=== PATIENT | female | born 1935 | race Hispanic/Latino ===

== ENCOUNTER → 2017-09-27 | Outpatient (CLI) | payer OTHER ==
[~2017-09-27] MED LIST: ADV250 IH; AEC81 PO; ALBU8.5H8 IH; CARV20CR PO; DEXL60CA3 PO; DONE10TA8 PO; DULO60CA44 PO; FLUT100B IH; HYDR-4068 PO; HYDR25TA PO; LAMO25TA3 PO; LEVE750T4 PO; MONT10TA21 PO; OMEP-272 PO; PRED10TA3 PO; SERT100T PO
== END | disposition home or self-care (01) ==
LOC: RAH 16:51
PROVIDERS: ATTEND Internal Medicine
DX: R00.9 Unspecified abnormalities of heart beat (principal)
CPT/HCPCS: 71046

== ENCOUNTER 2018-06-06 21:22 | Inpatient (IN) | payer OTHER, MEDICARE ==
[~2018-06-06] VITALS: Ht 160 cm; Wt 105.3 kg
[2018-06-06 21:52] LABS: BASOPHILS % (AUTO) 0.7 % (0.0-5.0); EOSINOPHILS % (AUTO) 1.9 % (0.0-8.0); HEMATOCRIT 38.6 % (36-48); MEAN CORPUSCULAR HEMOGLOBIN 32.5 pg (27.0-33.0); MEAN CORPUSCULAR HGB CONC 33.9 g/dL (32.0-36.0); MONOCYTES % (AUTO) 12.4 % (3.0-13.0); NUCLEATED RED BLOOD CELLS 0.1 % (0.0-0.19); PLATELET COUNT (AUTO) 127 K/uL (130-400); RED BLOOD CELL COUNT(AUTO) 4.02 MIL/uL (4.00-5.50); RED CELL DISTRIBUTION WIDTH 12.8 % (11.0-15.5); WHITE BLOOD COUNT (AUTO) 5.5 K/uL (4.8-10.8)
[2018-06-06] MEDS ORDERED: IPRATROPIUM/ALBUTEROL SULFATE 3 ML SOLUTION IH ONE (21:53)
[2018-06-06 22:02] LABS: CARBON DIOXIDE 27 mmol/L (21-32); CHLORIDE 101 mmol/L (101-111); GLOMERULAR FILTR. RATE CALC 57 mL/min (>60); GLUCOSE,RANDOM 111 mg/dL (70-105); POTASSIUM 3.9 mmol/L (3.5-5.1); SODIUM SERUM 138 mmol/L (136-145); UREA NITROGEN, BLOOD 22 mg/dL (7-18)
[2018-06-06 22:03] LABS: INR 1.02 (0.85-1.15); PARTIAL THROMBOPLASTIN TIME 28.7 SEC (26.3-35.5); PROTHROMBIN TIME 10.7 SEC (9.6-11.6)
[2018-06-06] MEDS ORDERED: METHYLPREDNISOLONE SOD SUCC 125MG/2ML VIAL ONE (22:07)
[2018-06-06] MEDS ORDERED: SODIUM CHLORIDE 0.9% 250 ML IV ONE (22:08)
[2018-06-06] MEDS ORDERED: ACETAMINOPHEN 325 MG TAB ONE (22:08)
[2018-06-06 22:17] LABS: ALANINE AMINOTRANSFERASE 17 U/L (12-78); ALBUMIN 3.8 g/dL (3.5-5.0); ASPARTATE AMINOTRANSFERASE 32 U/L (10-37); BILIRUBIN,TOTAL 0.5 mg/dL (0.2-1.0); MYOGLOBIN 364 ng/mL (10-92); TOTAL PROTEIN, SERUM 8.3 g/dL (6.0-8.3); TROPONIN I < 0.04 ng/mL (0.00-0.06)
[2018-06-06 22:20] LABS: CREATINE KINASE, TOTAL 934 U/L (21-232)
[2018-06-06 22:53] LABS: BILIRUBIN,URINE Negative (NEGATIVE); COLOR,URINE Yellow (YELLOW); GLUCOSE, URINE (UA) Negative (NEGATIVE); KETONES,URINE Negative (NEGATIVE); LEUKOCYTE ESTERASE ,URINE Negative (NEGATIVE); NITRATE,URINE Negative (NEGATIVE); OCCULT BLOOD,URINE Negative (NEGATIVE); PH,URINE 5.5 (5.0-8.0); PROTEIN,URINE Negative (NEGATIVE)
[2018-06-06 22:57] LABS: APPEARANCE,URINE CLEAR (CLEAR)
[2018-06-06] MEDS ORDERED: ONDANSETRON HCL 4 MG/2 ML VIAL IV PRN (23:15)
[2018-06-06] MEDS ORDERED: AZITHROMYCIN 500MG+NS 250ML 250 ML IV ONE (23:22)
[2018-06-07 01:20] VITALS: BP 137/68
--- NOTE | 2018-06-07 01:20 | NUR ---
ADMISSION. PT TRANSFERRED FROM ER VIA WHEELCHAIR INTO ROOM 414. O2 AT 2L/MIN VIA NC. PT AWAKE AND ALERT, NO C/O PAIN OR DISCOMFORT AT THIS TIME. PT DAUGHTER AT BEDSIDE. PT AND DAUGHTER ORIENTED TO ROOM, CALL MIRELA AT REACH. Addendum: 06/07/18 at 0138 by FOUZIA SNOW RN Amended: Links added.
[2018-06-07] MEDS: IPRATROPIUM/ALBUTEROL SULFATE 3 ML SOLUTION IH SCH ×6 (01:50→22:35)
[2018-06-07] MEDS: SODIUM CHLORIDE 0.9% 1000ML 1,000 ML IV SCH ×4 (02:18→18:57)
[2018-06-07] MEDS: AZITHROMYCIN 500MG+NS 250ML 250 ML IV SCH (02:18)
[2018-06-07 04:45] VITALS: BP 130/67
[2018-06-07] MEDS: BUDESONIDE 0.5 MG/2 ML INH IH SCH ×2 (05:59→19:40)
[2018-06-07] MEDS ORDERED: PANT40TA25 PO (06:14)
[2018-06-07] MEDS ORDERED: LEVE1000 PO (06:14)
[2018-06-07] MEDS ORDERED: PRAV20TA4 PO (06:14)
[2018-06-07] MEDS ORDERED: DICL25 PO (06:14)
[2018-06-07] MEDS ORDERED: CLOP75TA32 PO (06:14)
[2018-06-07] MEDS ORDERED: CARV40CR PO (06:14)
[2018-06-07] MEDS ORDERED: LOSA25TA41 PO (06:14)
[2018-06-07] MEDS ORDERED: GABA-531 PO (06:14)
[2018-06-07 07:34] LABS: BASOPHILS % (AUTO) 0.4 % (0.0-5.0); EOSINOPHILS % (AUTO) 0.1 % (0.0-8.0); HEMATOCRIT 37.1 % (36-48); LYMPHOCYTES % (AUTO) 9.9 % (21.0-51.0); MEAN CORPUSCULAR HEMOGLOBIN 32.1 pg (27.0-33.0); MEAN CORPUSCULAR HGB CONC 33.3 g/dL (32.0-36.0); MEAN CORPUSCULAR VOLUME 96.4 fL (79-99); MONOCYTES % (AUTO) 3.5 % (3.0-13.0); NEUTROPHILS % (AUTO) 86.1 % (40.0-77.0); NUCLEATED RED BLOOD CELLS 0.2 % (0.0-0.19); PLATELET COUNT (AUTO) 110 K/uL (130-400); RED BLOOD CELL COUNT(AUTO) 3.85 MIL/uL (4.00-5.50); RED CELL DISTRIBUTION WIDTH 12.8 % (11.0-15.5); WHITE BLOOD COUNT (AUTO) 3.9 K/uL (4.8-10.8)
[2018-06-07 08:00] VITALS: BP 141/61
[2018-06-07] MEDS ORDERED: NON-FORMULARY MEDICATION 1 EACH (Dexlansoprazole (Dexilant) 60 MG) PO SCH (09:00)
[2018-06-07] MEDS ORDERED: MONTELUKAST SODIUM 10 MG TAB PO SCH (09:00)
[2018-06-07] MEDS ORDERED: CARVEDILOL PHOSPHATE 20 MG PO SCH (09:00)
[2018-06-07] MEDS ORDERED: OMEPRAZOLE MAGNESIUM 20 MG PO SCH (09:00)
[2018-06-07] MEDS ORDERED: LEVETIRACETAM 500 MG TABLET PO SCH (09:00)
[2018-06-07] MEDS ORDERED: DONEPEZIL HCL 5 MG TAB PO SCH (09:00)
[2018-06-07] MEDS ORDERED: HYDROCHLOROTHIAZIDE 25 MG TABLET PO SCH (09:00)
[2018-06-07] MEDS ORDERED: LAMOTRIGINE 25 MG TAB PO SCH (09:00)
[2018-06-07] MEDS: CARVEDILOL PHOSPHATE 40 MG PO SCH (09:00)
[2018-06-07] MEDS: DEXAMETHASONE 4 MG TAB PO SCH (09:17)
[2018-06-07] MEDS: FAMOTIDINE/PF 20 MG/2 ML VIAL IV SCH ×2 (09:17→21:44)
[2018-06-07] MEDS: GABAPENTIN 300 MG CAPSULE PO SCH ×3 (09:18→21:45)
[2018-06-07] MEDS: ASPIRIN 81 MG EC TAB PO SCH (09:18)
[2018-06-07] MEDS: LEVETIRACETAM 500 MG TABLET PO SCH ×2 (09:18→21:43)
[2018-06-07] MEDS: LOSARTAN 50 MG TABLET PO SCH (09:18)
[2018-06-07] MEDS: CLOPIDOGREL BISULFATE 75 MG TAB PO SCH (09:18)
[2018-06-07] MEDS: OSELTAMIVIR PHOSPHATE 75 MG CAP PO SCH ×2 (09:18→21:44)
[2018-06-07] MEDS: ENOXAPARIN SODIUM 30 MG/0.3 ML SQ SCH ×2 (09:20→21:55)
[2018-06-07 11:49] VITALS: BP 122/60
[2018-06-07] MEDS ORDERED: SODIUM CHLORIDE 3% FOR INHALATION 4 ML/AMP VIAL.NEB IH ONE ×2 (12:24→22:56)
[2018-06-07] MEDS: GUAIFENESIN-CODEINE 5 ML SYRUP PO PRN (12:39)
[2018-06-07] MEDS ORDERED: FUROSEMIDE 10 MG/ML 4ML VIAL IV ONE (14:00)
[2018-06-07 19:06] VITALS: BP 125/64
[2018-06-07 19:54] VITALS: BP 110/64
[2018-06-07] MEDS ORDERED: DULOXETINE HCL 30 MG CAP PO SCH (21:00)
[2018-06-07] MEDS: SIMVASTATIN 20 MG TABLET PO SCH (21:43)
[2018-06-07] MEDS: SERTRALINE HCL 50 MG TABLET PO SCH (21:44)
[2018-06-08] VITALS (7 sets, daily range): BP systolic 108–131; BP diastolic 56–76
[2018-06-08] MEDS: IPRATROPIUM/ALBUTEROL SULFATE 3 ML SOLUTION IH SCH ×6 (02:13→22:44)
[2018-06-08] MEDS: BUDESONIDE 0.5 MG/2 ML INH IH SCH ×2 (05:09→18:41)
[2018-06-08 05:26] LABS: BASOPHILS % (AUTO) 0.2 % (0.0-5.0); LYMPHOCYTES % (AUTO) 15.1 % (21.0-51.0); MEAN CORPUSCULAR VOLUME 97.1 fL (79-99); MONOCYTES % (AUTO) 12.4 % (3.0-13.0); NEUTROPHILS % (AUTO) 72.3 % (40.0-77.0); PLATELET COUNT (AUTO) 131 K/uL (130-400); RED CELL DISTRIBUTION WIDTH 12.8 % (11.0-15.5); WHITE BLOOD COUNT (AUTO) 5.1 K/uL (4.8-10.8)
[2018-06-08 06:25] LABS: POTASSIUM 3.8 mmol/L (3.5-5.1)
[2018-06-08] MEDS ORDERED: SODIUM CHLORIDE 3% FOR INHALATION 4 ML/AMP VIAL.NEB IH ONE (07:19)
[2018-06-08] MEDS ORDERED: FUROSEMIDE 10 MG/ML 2ML VIAL IV SCH (07:45)
[2018-06-08] MEDS: CARVEDILOL PHOSPHATE 40 MG PO SCH (09:00)
--- NOTE | 2018-06-08 09:32 | NUR ---
Notified AJ, POULTRY BUYER, pt. refusing Lasix due she always gets severe cramps even with one dose. AJ stated ok, but if she starts to have fluid build up will need to take. Notified the pt. and her dtr.
[2018-06-08] MEDS: DEXAMETHASONE 4 MG TAB PO SCH (09:39)
[2018-06-08] MEDS: FAMOTIDINE/PF 20 MG/2 ML VIAL IV SCH ×2 (09:39→20:16)
[2018-06-08] MEDS: ASPIRIN 81 MG EC TAB PO SCH (09:40)
[2018-06-08] MEDS: OSELTAMIVIR PHOSPHATE 75 MG CAP PO SCH ×2 (09:40→20:16)
[2018-06-08] MEDS: LEVETIRACETAM 500 MG TABLET PO SCH ×2 (09:40→20:15)
[2018-06-08] MEDS: SODIUM CHLORIDE 0.9% 1000ML 1,000 ML IV SCH ×3 (09:41→20:17)
[2018-06-08] MEDS: GABAPENTIN 300 MG CAPSULE PO SCH ×3 (09:41→20:15)
[2018-06-08] MEDS: LOSARTAN 50 MG TABLET PO SCH (09:41)
[2018-06-08] MEDS: CLOPIDOGREL BISULFATE 75 MG TAB PO SCH (09:41)
[2018-06-08] MEDS: ENOXAPARIN SODIUM 30 MG/0.3 ML SQ SCH ×2 (09:50→20:16)
--- NOTE | 2018-06-08 14:05 | NUR ---
DCP CM met with pt discussed dc plans. Pt is independent prior to admission, lives at home with daughter. Has a walker, nebulizer machine, shower chair. Pt feels safe to go back home, daughter able to assist w/transportation and needs as necessary. DC plan to home once stable. CM to cont to follow up. Addendum: 06/08/18 at 1408 by PRASHANT REYES LVN CM Amended: Links added.
--- NOTE | 2018-06-08 19:44 | NUR ---
afib called from telemonitor, patient showing afib controlled ventricular response , temp 97.8 f, pulse 57,resp 21, b/p 108/65, sat 96 % on 2 l n/c,patient asymptomatic, called hospitalist livestock nutritionist leeann solis, notified of afib , patient with history of irregular heart beat, monitor for now
[2018-06-08] MEDS: GUAIFENESIN-CODEINE 5 ML SYRUP PO PRN (20:15)
[2018-06-08] MEDS: SIMVASTATIN 20 MG TABLET PO SCH (20:15)
[2018-06-08] MEDS: SERTRALINE HCL 50 MG TABLET PO SCH (20:16)
--- NOTE | 2018-06-08 21:30 | NUR ---
rhythm called from bus driver/monitor patient converted to sinus rhythm heart rate 68
[2018-06-08] MEDS: AZITHROMYCIN 500MG+NS 250ML 250 ML IV SCH ×2 (23:33)
[2018-06-09] MEDS: GUAIFENESIN-CODEINE 5 ML SYRUP PO PRN ×5 (00:42→22:04)
[2018-06-09] MEDS: IPRATROPIUM/ALBUTEROL SULFATE 3 ML SOLUTION IH SCH ×6 (01:08→21:47)
[2018-06-09 03:34] VITALS: BP 136/71
[2018-06-09 05:05] LABS: BASOPHILS % (AUTO) 0.1 % (0.0-5.0); HEMATOCRIT 33.6 % (36-48); LYMPHOCYTES % (AUTO) 15.8 % (21.0-51.0); MEAN CORPUSCULAR HEMOGLOBIN 32.7 pg (27.0-33.0); MEAN CORPUSCULAR HGB CONC 33.7 g/dL (32.0-36.0); MEAN CORPUSCULAR VOLUME 97.1 fL (79-99); MONOCYTES % (AUTO) 9.1 % (3.0-13.0); NUCLEATED RED BLOOD CELLS 0.1 % (0.0-0.19); PLATELET COUNT (AUTO) 119 K/uL (130-400); RED BLOOD CELL COUNT(AUTO) 3.46 MIL/uL (4.00-5.50); RED CELL DISTRIBUTION WIDTH 13.1 % (11.0-15.5); WHITE BLOOD COUNT (AUTO) 4.8 K/uL (4.8-10.8)
[2018-06-09 05:14] LABS: CREATININE 0.8 mg/dL (0.5-1.5); POTASSIUM 3.9 mmol/L (3.5-5.1)
[2018-06-09] MEDS: BUDESONIDE 0.5 MG/2 ML INH IH SCH ×2 (06:23→18:44)
[2018-06-09 08:00] VITALS: BP 128/64
[2018-06-09] MEDS: CARVEDILOL PHOSPHATE 40 MG PO SCH (09:00)
[2018-06-09] MEDS: OSELTAMIVIR PHOSPHATE 75 MG CAP PO SCH ×2 (10:07→20:23)
[2018-06-09] MEDS: DEXAMETHASONE 4 MG TAB PO SCH (10:07)
[2018-06-09] MEDS: CLOPIDOGREL BISULFATE 75 MG TAB PO SCH (10:08)
[2018-06-09] MEDS: LEVETIRACETAM 500 MG TABLET PO SCH ×2 (10:08→20:23)
[2018-06-09] MEDS: GABAPENTIN 300 MG CAPSULE PO SCH ×3 (10:08→20:23)
[2018-06-09] MEDS: LOSARTAN 50 MG TABLET PO SCH (10:08)
[2018-06-09] MEDS: ASPIRIN 81 MG EC TAB PO SCH (10:08)
[2018-06-09] MEDS: FAMOTIDINE/PF 20 MG/2 ML VIAL IV SCH ×2 (10:08→20:23)
[2018-06-09] MEDS: ENOXAPARIN SODIUM 30 MG/0.3 ML SQ SCH ×2 (10:09→20:24)
[2018-06-09] MEDS: SODIUM CHLORIDE 0.9% 1000ML 1,000 ML IV SCH ×3 (10:17→20:24)
[2018-06-09 11:00] VITALS: BP_SYST 128; BP_DIAS 22; BP_DIAS 77
[2018-06-09] MEDS ORDERED: FUROSEMIDE 10 MG/ML 4ML VIAL IV SCH (11:45)
[2018-06-09 16:00] VITALS: BP 132/67
--- NOTE | 2018-06-09 16:03 | NUR ---
CM Note: [facility] pending ins auth and acceptance CM met with pt and daughter, discussed MD recommendation for temp placement rehab, pt and daughter agreeable, pt signed PAT for [facility]. Faxed clinicals, order, and pasrr, pt pending PT eval and note, will send as soon as available. Primary nurse aware. CM to cont to follow up.
[2018-06-09 19:45] VITALS: BP 129/65
[2018-06-09] MEDS: SERTRALINE HCL 50 MG TABLET PO SCH (20:23)
[2018-06-09] MEDS: AZITHROMYCIN 500MG+NS 250ML 250 ML IV SCH (22:43)
[2018-06-09 23:37] VITALS: BP 143/76
[2018-06-10] MEDS: IPRATROPIUM/ALBUTEROL SULFATE 3 ML SOLUTION IH SCH ×6 (01:34→21:43)
[2018-06-10 03:40] VITALS: BP 141/77
[2018-06-10 05:08] LABS: BASOPHILS % (AUTO) 0.1 % (0.0-5.0); HEMATOCRIT 34.9 % (36-48); MEAN CORPUSCULAR HEMOGLOBIN 32.6 pg (27.0-33.0); MEAN CORPUSCULAR HGB CONC 33.5 g/dL (32.0-36.0); MEAN CORPUSCULAR VOLUME 97.3 fL (79-99); MONOCYTES % (AUTO) 10.3 % (3.0-13.0); NEUTROPHILS % (AUTO) 71.6 % (40.0-77.0); PLATELET COUNT (AUTO) 120 K/uL (130-400); RED BLOOD CELL COUNT(AUTO) 3.59 MIL/uL (4.00-5.50); RED CELL DISTRIBUTION WIDTH 12.9 % (11.0-15.5); WHITE BLOOD COUNT (AUTO) 4.2 K/uL (4.8-10.8)
[2018-06-10 05:14] LABS: CREATININE 0.8 mg/dL (0.5-1.5); POTASSIUM 3.9 mmol/L (3.5-5.1)
[2018-06-10] MEDS: BUDESONIDE 0.5 MG/2 ML INH IH SCH ×2 (06:46→19:15)
[2018-06-10 08:25] VITALS: BP 149/80
[2018-06-10] MEDS: MEROPENEM 1 GM VIAL IVP SCH ×3 (08:51→23:29)
[2018-06-10] MEDS: CLOPIDOGREL BISULFATE 75 MG TAB PO SCH (08:53)
[2018-06-10] MEDS: LEVETIRACETAM 500 MG TABLET PO SCH ×2 (08:54→20:33)
[2018-06-10] MEDS: ASPIRIN 81 MG EC TAB PO SCH (08:54)
[2018-06-10] MEDS: DEXAMETHASONE 4 MG TAB PO SCH (08:55)
[2018-06-10] MEDS: OSELTAMIVIR PHOSPHATE 75 MG CAP PO SCH ×2 (08:56→20:33)
[2018-06-10] MEDS: LOSARTAN 50 MG TABLET PO SCH (08:56)
[2018-06-10] MEDS: FAMOTIDINE/PF 20 MG/2 ML VIAL IV SCH ×2 (08:58→20:33)
[2018-06-10] MEDS: ENOXAPARIN SODIUM 30 MG/0.3 ML SQ SCH ×2 (08:58→20:34)
[2018-06-10] MEDS: CARVEDILOL PHOSPHATE 40 MG PO SCH (08:58)
[2018-06-10] MEDS: SODIUM CHLORIDE 0.9% 1000ML 1,000 ML IV SCH (08:59)
[2018-06-10] MEDS: GABAPENTIN 300 MG CAPSULE PO SCH ×3 (10:12→20:33)
--- NOTE | 2018-06-10 10:59 | NUR ---
CM Note: [facility] pending ins auth Spoke to Francisco marie/[facility], received request yesterday, will come eval pt today. Pt pending ins auth and acceptance at this time. Primary nurse aware. CM to cont to follow up.
[2018-06-10 11:34] VITALS: BP 147/75
[2018-06-10] MEDS ORDERED: FUROSEMIDE 10 MG/ML 4ML VIAL IV SCH (14:45)
[2018-06-10 16:44] VITALS: BP 135/91
[2018-06-10 19:34] VITALS: BP 124/52
[2018-06-10] MEDS: BENZONATATE 100 MG CAPSULE PO PRN (20:32)
[2018-06-10] MEDS: SERTRALINE HCL 50 MG TABLET PO SCH (20:33)
[2018-06-10] MEDS: AZITHROMYCIN 500MG+NS 250ML 250 ML IV SCH (23:29)
[2018-06-11] VITALS (7 sets, daily range): BP systolic 132–163; BP diastolic 58–82
[2018-06-11] MEDS: IPRATROPIUM/ALBUTEROL SULFATE 3 ML SOLUTION IH SCH ×6 (01:21→21:20)
[2018-06-11] MEDS: SODIUM CHLORIDE 0.9% 1000ML 1,000 ML IV SCH (02:22)
[2018-06-11 04:24] LABS: BASOPHILS % (AUTO) 0.1 % (0.0-5.0); EOSINOPHILS % (AUTO) 0.2 % (0.0-8.0); HEMATOCRIT 35.6 % (36-48); LYMPHOCYTES % (AUTO) 23.4 % (21.0-51.0); MEAN CORPUSCULAR HEMOGLOBIN 32.2 pg (27.0-33.0); MEAN CORPUSCULAR HGB CONC 33.6 g/dL (32.0-36.0); MEAN CORPUSCULAR VOLUME 95.8 fL (79-99); MONOCYTES % (AUTO) 10.7 % (3.0-13.0); NEUTROPHILS % (AUTO) 65.6 % (40.0-77.0); NUCLEATED RED BLOOD CELLS 0.3 % (0.0-0.19); PLATELET COUNT (AUTO) 114 K/uL (130-400); RED BLOOD CELL COUNT(AUTO) 3.72 MIL/uL (4.00-5.50); RED CELL DISTRIBUTION WIDTH 12.9 % (11.0-15.5); WHITE BLOOD COUNT (AUTO) 4.4 K/uL (4.8-10.8)
[2018-06-11 04:42] LABS: CREATININE 0.7 mg/dL (0.5-1.5); POTASSIUM 3.3 mmol/L (3.5-5.1)
[2018-06-11] MEDS: MEROPENEM 1 GM VIAL IVP SCH ×3 (06:06→23:43)
[2018-06-11] MEDS: BUDESONIDE 0.5 MG/2 ML INH IH SCH ×2 (06:25→18:58)
[2018-06-11] MEDS ORDERED: POTASSIUM CHLORIDE 10% ELIXIR 20 MEQ/15 ML UDCUP PO PRN (08:15)
[2018-06-11] MEDS ORDERED: LIDOCAINE HCL-MPF 1% 2ML VIAL IVP PRN (08:15)
[2018-06-11] MEDS ORDERED: POTASSIUM CHLORIDE 10MEQ/100ML 100 ML IV PRN (08:15)
[2018-06-11] MEDS: FAMOTIDINE/PF 20 MG/2 ML VIAL IV SCH ×2 (08:35→20:56)
[2018-06-11] MEDS: CLOPIDOGREL BISULFATE 75 MG TAB PO SCH (08:35)
[2018-06-11] MEDS: OSELTAMIVIR PHOSPHATE 75 MG CAP PO SCH ×2 (08:36→20:56)
[2018-06-11] MEDS: LOSARTAN 50 MG TABLET PO SCH (08:36)
[2018-06-11] MEDS: ASPIRIN 81 MG EC TAB PO SCH (08:36)
[2018-06-11] MEDS: DEXAMETHASONE 4 MG TAB PO SCH (08:37)
[2018-06-11] MEDS: LEVETIRACETAM 500 MG TABLET PO SCH ×2 (08:38→20:56)
[2018-06-11] MEDS: CARVEDILOL PHOSPHATE 40 MG PO SCH (08:38)
[2018-06-11] MEDS: ENOXAPARIN SODIUM 30 MG/0.3 ML SQ SCH ×2 (08:39→21:02)
[2018-06-11] MEDS: GABAPENTIN 300 MG CAPSULE PO SCH ×3 (08:40→20:57)
--- NOTE | 2018-06-11 12:30 | NUR ---
BEDSIDE DYSPHAGIA EVAL COMPLETE. NO S/S OF ASPIRATION OBSERVED. RECOMMEND REGULAR TEXTURES AND THIN LIQUIDS. PATIENT INFORMATION: Pt IS AN 83 Y.O. FEMALE REFERRED FOR DYSPHAGIA EVAL SECONDARY TO C/O DIFFICULTY SWALLOWING. Pt REPORTS FOOD GETS STUCK HER THER THROAT WHEN SHE IS SWALLOWING AND MUST RE-SWALLOW MULTIPLE TIMES FOR FOOD TO GO DOWN. NURSE, KILEY, REPORTS NO S/S OF ASPIRATION OBSERVED DURING MEALS OR WHILE TAKING MEDICATIONS. Pt STATED SHE DOES HAVE A HX OF GERD FOR WHICH SHE USED TO TAKE ORAL MEDICATIONS BUT MEDICATIONS WERE DISCONTINUED A FEW YEARS AGO. PMHX SIG FOR ASTHMA, CAD, PACEMAKER, AND SEIZURES. EVALUATION: SWALLOW FUNCTION AND EFFICIENCY ARE WFL. NO S/S OF ASPIRATION OBSERVED. Pt HAS ADEQUATE ORAL STRENGTH AND ROM, TIMELY PHARYNGEAL RESPONSE, GOOD LARYNGEAL ELEVATION/EXCURSION, AND APPROPRIATE AIRWAY PROTECTION. RECOMMENDATIONS: 1. REGULAR TEXTURES 2. THIN LIQUIDS 3. MD TO EVALUATE FOR COMPLICATIONS OF GERD SECONDARY TO C/O FOOD STICKING IN HER THROAT, BURNING SENSATION IN UPPER ESOPHAGUS, AND C/O DIFFICULTY SWALLOWING BREAD, MEAT, AND RICE WHICH ARE ALL COMMON COMPLAINTS OF Pt'S WITH GERD 4. MD TO TREAT FOR GERD IF APPROPRIATE 5. NO NEED FOR FURTHER ASSISTANT AUDITOR INTERVENTION; PLEASE RECONSULT IF ISSUES ARISE Addendum: 06/11/18 at 1235 by [facility]O [facility] Amended: Links added.
[2018-06-11] MEDS: SERTRALINE HCL 50 MG TABLET PO SCH (20:57)
[2018-06-11] MEDS: GUAIFENESIN-CODEINE 5 ML SYRUP PO PRN (21:04)
[2018-06-11] MEDS: AZITHROMYCIN 500MG+NS 250ML 250 ML IV SCH (23:43)
[2018-06-11] MEDS: BENZONATATE 100 MG CAPSULE PO PRN (23:49)
[2018-06-12] MEDS: IPRATROPIUM/ALBUTEROL SULFATE 3 ML SOLUTION IH SCH ×6 (01:13→21:48)
[2018-06-12 04:00] VITALS: BP 149/78
[2018-06-12 05:42] LABS: BASOPHILS % (AUTO) 0.2 % (0.0-5.0); EOSINOPHILS % (AUTO) 0.2 % (0.0-8.0); HEMATOCRIT 34.9 % (36-48); LYMPHOCYTES % (AUTO) 23.1 % (21.0-51.0); MEAN CORPUSCULAR HEMOGLOBIN 33.2 pg (27.0-33.0); MEAN CORPUSCULAR HGB CONC 34.5 g/dL (32.0-36.0); MEAN CORPUSCULAR VOLUME 96.2 fL (79-99); MONOCYTES % (AUTO) 9.4 % (3.0-13.0); NEUTROPHILS % (AUTO) 67.1 % (40.0-77.0); PLATELET COUNT (AUTO) 113 K/uL (130-400); RED BLOOD CELL COUNT(AUTO) 3.63 MIL/uL (4.00-5.50); RED CELL DISTRIBUTION WIDTH 12.9 % (11.0-15.5); WHITE BLOOD COUNT (AUTO) 4.7 K/uL (4.8-10.8)
[2018-06-12 06:17] LABS: CREATININE 0.7 mg/dL (0.5-1.5); POTASSIUM 3.7 mmol/L (3.5-5.1)
[2018-06-12] MEDS: BUDESONIDE 0.5 MG/2 ML INH IH SCH ×2 (06:34→19:08)
[2018-06-12] MEDS: MEROPENEM 1 GM VIAL IVP SCH ×3 (06:38→23:12)
[2018-06-12 08:00] VITALS: BP 149/72
[2018-06-12] MEDS: GABAPENTIN 300 MG CAPSULE PO SCH ×3 (08:19→21:14)
[2018-06-12] MEDS: LEVETIRACETAM 500 MG TABLET PO SCH ×2 (08:19→21:14)
[2018-06-12] MEDS: FAMOTIDINE/PF 20 MG/2 ML VIAL IV SCH ×2 (08:19→21:14)
[2018-06-12] MEDS: ASPIRIN 81 MG EC TAB PO SCH (08:20)
[2018-06-12] MEDS: DEXAMETHASONE 4 MG TAB PO SCH (08:20)
[2018-06-12] MEDS: CLOPIDOGREL BISULFATE 75 MG TAB PO SCH (08:20)
[2018-06-12] MEDS: LOSARTAN 50 MG TABLET PO SCH (08:20)
[2018-06-12] MEDS: CARVEDILOL PHOSPHATE 40 MG PO SCH (08:22)
[2018-06-12] MEDS: ENOXAPARIN SODIUM 30 MG/0.3 ML SQ SCH ×2 (08:23→21:15)
[2018-06-12 11:05] VITALS: BP 143/71
[2018-06-12 17:29] VITALS: BP 122/67
[2018-06-12 19:46] VITALS: BP 114/54
[2018-06-12] MEDS: SERTRALINE HCL 50 MG TABLET PO SCH (21:14)
[2018-06-12] MEDS: BENZONATATE 100 MG CAPSULE PO PRN (21:16)
[2018-06-12] MEDS: AZITHROMYCIN 500MG+NS 250ML 250 ML IV SCH (23:12)
[2018-06-12] MEDS: GUAIFENESIN-CODEINE 5 ML SYRUP PO PRN (23:18)
[2018-06-12 23:40] VITALS: BP 166/82
[2018-06-13] MEDS: IPRATROPIUM/ALBUTEROL SULFATE 3 ML SOLUTION IH SCH ×6 (02:20→21:23)
[2018-06-13 04:00] VITALS: BP 148/77
[2018-06-13] MEDS: BUDESONIDE 0.5 MG/2 ML INH IH SCH ×2 (06:09→18:55)
[2018-06-13] MEDS: MEROPENEM 1 GM VIAL IVP SCH ×3 (06:48→22:33)
[2018-06-13 07:01] LABS: BASOPHILS % (AUTO) 0.2 % (0.0-5.0); EOSINOPHILS % (AUTO) 0.4 % (0.0-8.0); HEMATOCRIT 37.2 % (36-48); LYMPHOCYTES % (AUTO) 19.8 % (21.0-51.0); MEAN CORPUSCULAR HGB CONC 33.2 g/dL (32.0-36.0); MEAN CORPUSCULAR VOLUME 96.5 fL (79-99); NEUTROPHILS % (AUTO) 72.6 % (40.0-77.0); NUCLEATED RED BLOOD CELLS 0.1 % (0.0-0.19); PLATELET COUNT (AUTO) 134 K/uL (130-400); RED BLOOD CELL COUNT(AUTO) 3.86 MIL/uL (4.00-5.50); RED CELL DISTRIBUTION WIDTH 12.8 % (11.0-15.5); WHITE BLOOD COUNT (AUTO) 7.6 K/uL (4.8-10.8)
[2018-06-13 07:04] LABS: CREATININE 0.7 mg/dL (0.5-1.5); POTASSIUM 3.4 mmol/L (3.5-5.1)
[2018-06-13 08:00] VITALS: BP 129/61
[2018-06-13] MEDS: ENOXAPARIN SODIUM 30 MG/0.3 ML SQ SCH ×2 (09:00→21:51)
[2018-06-13] MEDS: CARVEDILOL PHOSPHATE 40 MG PO SCH (09:00)
[2018-06-13] MEDS: DEXAMETHASONE 4 MG TAB PO SCH (10:14)
[2018-06-13] MEDS: LOSARTAN 50 MG TABLET PO SCH (10:14)
[2018-06-13] MEDS: FAMOTIDINE/PF 20 MG/2 ML VIAL IV SCH ×2 (10:14→21:49)
[2018-06-13] MEDS: CLOPIDOGREL BISULFATE 75 MG TAB PO SCH (10:14)
[2018-06-13] MEDS: GABAPENTIN 300 MG CAPSULE PO SCH ×3 (10:14→21:48)
[2018-06-13] MEDS: ASPIRIN 81 MG EC TAB PO SCH (10:14)
[2018-06-13 11:00] VITALS: BP 141/72
[2018-06-13] MEDS: LEVETIRACETAM 500 MG TABLET PO SCH ×2 (11:25→21:48)
[2018-06-13 16:00] VITALS: BP 150/66
[2018-06-13] MEDS: SODIUM CHLORIDE 0.9% 1000ML 1,000 ML IV SCH (16:44)
[2018-06-13 19:30] VITALS: BP 136/60
[2018-06-13] MEDS: ACETAMINOPHEN 325 MG TAB PO PRN (21:48)
[2018-06-13] MEDS: SERTRALINE HCL 50 MG TABLET PO SCH (21:49)
[2018-06-13] MEDS: BENZONATATE 100 MG CAPSULE PO PRN (21:49)
[2018-06-13 23:12] VITALS: BP 158/84
[2018-06-14] VITALS (7 sets, daily range): BP systolic 116–157; BP diastolic 55–88
[2018-06-14] MEDS: IPRATROPIUM/ALBUTEROL SULFATE 3 ML SOLUTION IH SCH ×6 (01:56→21:15)
[2018-06-14] MEDS: GUAIFENESIN-CODEINE 5 ML SYRUP PO PRN (02:11)
[2018-06-14 04:37] LABS: BASOPHILS % (AUTO) 0.2 % (0.0-5.0); EOSINOPHILS % (AUTO) 0.4 % (0.0-8.0); LYMPHOCYTES % (AUTO) 15.3 % (21.0-51.0); MEAN CORPUSCULAR HEMOGLOBIN 33.1 pg (27.0-33.0); MEAN CORPUSCULAR HGB CONC 34.7 g/dL (32.0-36.0); MEAN CORPUSCULAR VOLUME 95.3 fL (79-99); NEUTROPHILS % (AUTO) 76.1 % (40.0-77.0); PLATELET COUNT (AUTO) 130 K/uL (130-400); RED BLOOD CELL COUNT(AUTO) 3.57 MIL/uL (4.00-5.50); RED CELL DISTRIBUTION WIDTH 12.7 % (11.0-15.5); WHITE BLOOD COUNT (AUTO) 5.4 K/uL (4.8-10.8)
[2018-06-14 04:52] LABS: CREATININE 0.7 mg/dL (0.5-1.5); POTASSIUM 3.4 mmol/L (3.5-5.1)
[2018-06-14] MEDS: BUDESONIDE 0.5 MG/2 ML INH IH SCH ×2 (05:23→20:50)
[2018-06-14] MEDS: MEROPENEM 1 GM VIAL IVP SCH ×3 (07:52→22:56)
[2018-06-14] MEDS: POTASSIUM CHLORIDE 20 MEQ ERTAB PO PRN ×2 (07:53→10:37)
[2018-06-14] MEDS ORDERED: FUROSEMIDE 10 MG/ML 4ML VIAL IV SCH (08:15)
[2018-06-14] MEDS: CARVEDILOL PHOSPHATE 40 MG PO SCH (09:00)
[2018-06-14] MEDS: ENOXAPARIN SODIUM 30 MG/0.3 ML SQ SCH ×2 (09:00→20:40)
[2018-06-14] MEDS: SODIUM CHLORIDE 0.9% 1000ML 1,000 ML IV SCH (10:08)
[2018-06-14] MEDS: FAMOTIDINE/PF 20 MG/2 ML VIAL IV SCH ×2 (10:36→20:35)
[2018-06-14] MEDS: BENZONATATE 100 MG CAPSULE PO PRN ×2 (10:36→23:06)
[2018-06-14] MEDS: LOSARTAN 50 MG TABLET PO SCH (10:36)
[2018-06-14] MEDS: LEVETIRACETAM 500 MG TABLET PO SCH ×2 (10:36→20:35)
[2018-06-14] MEDS: ASPIRIN 81 MG EC TAB PO SCH (10:37)
[2018-06-14] MEDS: CLOPIDOGREL BISULFATE 75 MG TAB PO SCH (10:37)
[2018-06-14] MEDS: DEXAMETHASONE 4 MG TAB PO SCH (10:37)
[2018-06-14] MEDS: GABAPENTIN 300 MG CAPSULE PO SCH ×3 (10:42→20:35)
[2018-06-14] MEDS: SERTRALINE HCL 50 MG TABLET PO SCH (20:35)
[2018-06-14] MEDS: ACETAMINOPHEN 325 MG TAB PO PRN (23:07)
[2018-06-15] MEDS: IPRATROPIUM/ALBUTEROL SULFATE 3 ML SOLUTION IH SCH ×6 (01:15→21:41)
[2018-06-15] MEDS: GUAIFENESIN-CODEINE 5 ML SYRUP PO PRN ×2 (01:42→21:03)
[2018-06-15 03:54] VITALS: BP 151/73
[2018-06-15] MEDS: BUDESONIDE 0.5 MG/2 ML INH IH SCH ×2 (05:25→18:30)
[2018-06-15] MEDS: ACETAMINOPHEN 325 MG TAB PO PRN (05:59)
[2018-06-15 06:04] LABS: BASOPHILS % (AUTO) 0.2 % (0.0-5.0); EOSINOPHILS % (AUTO) 0.5 % (0.0-8.0); HEMATOCRIT 35.7 % (36-48); MEAN CORPUSCULAR HEMOGLOBIN 32.1 pg (27.0-33.0); MEAN CORPUSCULAR HGB CONC 33.5 g/dL (32.0-36.0); MEAN CORPUSCULAR VOLUME 95.9 fL (79-99); MONOCYTES % (AUTO) 9.1 % (3.0-13.0); NEUTROPHILS % (AUTO) 74.2 % (40.0-77.0); NUCLEATED RED BLOOD CELLS 0.1 % (0.0-0.19); PLATELET COUNT (AUTO) 134 K/uL (130-400); RED BLOOD CELL COUNT(AUTO) 3.73 MIL/uL (4.00-5.50); RED CELL DISTRIBUTION WIDTH 12.9 % (11.0-15.5); WHITE BLOOD COUNT (AUTO) 6.2 K/uL (4.8-10.8)
[2018-06-15 06:22] LABS: CREATININE 0.8 mg/dL (0.5-1.5); POTASSIUM 3.9 mmol/L (3.5-5.1)
[2018-06-15] MEDS: MEROPENEM 1 GM VIAL IVP SCH ×3 (06:25→21:04)
[2018-06-15] MEDS: BENZONATATE 100 MG CAPSULE PO PRN (06:26)
--- NOTE | 2018-06-15 07:30 | NUR ---
received report assessment completed , no distress, denies discomfort, family member at bedside
[2018-06-15 08:05] VITALS: BP 163/66
[2018-06-15] MEDS: ASPIRIN 81 MG EC TAB PO SCH (09:38)
[2018-06-15] MEDS: LOSARTAN 50 MG TABLET PO SCH (09:38)
[2018-06-15] MEDS: FAMOTIDINE/PF 20 MG/2 ML VIAL IV SCH ×2 (09:38→21:04)
[2018-06-15] MEDS: DEXAMETHASONE 4 MG TAB PO SCH (09:39)
[2018-06-15] MEDS: LEVETIRACETAM 500 MG TABLET PO SCH ×2 (09:39→21:03)
[2018-06-15] MEDS: CLOPIDOGREL BISULFATE 75 MG TAB PO SCH (09:40)
[2018-06-15] MEDS: GABAPENTIN 300 MG CAPSULE PO SCH ×3 (09:40→21:04)
[2018-06-15] MEDS: ENOXAPARIN SODIUM 30 MG/0.3 ML SQ SCH ×2 (09:40→21:18)
[2018-06-15] MEDS: CARVEDILOL PHOSPHATE 40 MG PO SCH (09:41)
--- NOTE | 2018-06-15 10:00 | NUR ---
AJ HEATER HELPER IN TO SEE PT DISCUSSED PLAN OF CARE ,
[2018-06-15 11:51] VITALS: BP 136/71
--- NOTE | 2018-06-15 15:33 | NUR ---
Nutrition intervention: Nutrition notification for LOS x9-RD screen. Pt admitted for influenza A/viral pneumonitis. Pt currently on heart healthy diet with good oral intake. Pt reports a little trouble chewing however bedside eval has been done with BAR TACKER SEWING MACHINE note stating no signs of aspiration and recommendations of regular textures/thin liquids. Pt states she has no nutrition concerns with n/v/d, chewing or food allergies. Alb 3.8. LBM 1/2. Recommendations: Continue current diet therapy. Consult RD if additional nutrition concerns arise.
[2018-06-15 16:48] VITALS: BP 110/56
[2018-06-15 19:24] VITALS: BP 116/55
[2018-06-15] MEDS: SERTRALINE HCL 50 MG TABLET PO SCH (21:04)
[2018-06-15 23:09] VITALS: BP 127/66
[2018-06-16] MEDS: IPRATROPIUM/ALBUTEROL SULFATE 3 ML SOLUTION IH SCH ×6 (01:36→21:58)
[2018-06-16 03:14] VITALS: BP 132/61
[2018-06-16] MEDS: GUAIFENESIN-CODEINE 5 ML SYRUP PO PRN (03:18)
[2018-06-16 05:53] LABS: BASOPHILS % (AUTO) 0.1 % (0.0-5.0); EOSINOPHILS % (AUTO) 0.6 % (0.0-8.0); HEMATOCRIT 35.2 % (36-48); MEAN CORPUSCULAR HGB CONC 34.3 g/dL (32.0-36.0); MEAN CORPUSCULAR VOLUME 96.1 fL (79-99); NEUTROPHILS % (AUTO) 72.3 % (40.0-77.0); PLATELET COUNT (AUTO) 154 K/uL (130-400); RED BLOOD CELL COUNT(AUTO) 3.67 MIL/uL (4.00-5.50); RED CELL DISTRIBUTION WIDTH 12.8 % (11.0-15.5)
[2018-06-16 06:01] LABS: CREATININE 0.7 mg/dL (0.5-1.5); POTASSIUM 3.9 mmol/L (3.5-5.1)
[2018-06-16] MEDS: MEROPENEM 1 GM VIAL IVP SCH ×3 (06:17→22:43)
[2018-06-16 08:00] VITALS: BP 162/68
[2018-06-16] MEDS: BUDESONIDE 0.5 MG/2 ML INH IH SCH ×2 (08:21→19:18)
[2018-06-16] MEDS: ENOXAPARIN SODIUM 30 MG/0.3 ML SQ SCH ×2 (10:52→21:06)
[2018-06-16] MEDS: BENZONATATE 100 MG CAPSULE PO PRN (10:52)
[2018-06-16] MEDS: CLOPIDOGREL BISULFATE 75 MG TAB PO SCH (10:53)
[2018-06-16] MEDS: GABAPENTIN 300 MG CAPSULE PO SCH ×3 (10:53→21:00)
[2018-06-16] MEDS: DEXAMETHASONE 4 MG TAB PO SCH (10:53)
[2018-06-16] MEDS: LEVETIRACETAM 500 MG TABLET PO SCH ×2 (10:53→20:59)
[2018-06-16] MEDS: FAMOTIDINE/PF 20 MG/2 ML VIAL IV SCH ×2 (10:54→21:00)
[2018-06-16] MEDS: LOSARTAN 50 MG TABLET PO SCH (10:54)
[2018-06-16] MEDS: ASPIRIN 81 MG EC TAB PO SCH (10:54)
[2018-06-16] MEDS: CARVEDILOL PHOSPHATE 40 MG PO SCH (10:55)
[2018-06-16 12:12] VITALS: BP 123/67
[2018-06-16 12:29] LABS: CREATINE KINASE, TOTAL 376 U/L (21-232); MYOGLOBIN 60 ng/mL (10-92); TROPONIN I < 0.04 ng/mL (0.00-0.06)
[2018-06-16 16:00] VITALS: BP 137/67
[2018-06-16 19:09] VITALS: BP 126/53
[2018-06-16] MEDS: SERTRALINE HCL 50 MG TABLET PO SCH (20:59)
[2018-06-16 23:17] VITALS: BP 153/74
[2018-06-17] MEDS: IPRATROPIUM/ALBUTEROL SULFATE 3 ML SOLUTION IH SCH ×6 (01:51→22:33)
[2018-06-17 03:12] VITALS: BP 157/80
[2018-06-17 05:02] LABS: BASOPHILS % (AUTO) 0.2 % (0.0-5.0); EOSINOPHILS % (AUTO) 0.1 % (0.0-8.0); HEMATOCRIT 36.7 % (36-48); LYMPHOCYTES % (AUTO) 13.8 % (21.0-51.0); MEAN CORPUSCULAR HGB CONC 33.2 g/dL (32.0-36.0); MEAN CORPUSCULAR VOLUME 96.4 fL (79-99); MONOCYTES % (AUTO) 8.6 % (3.0-13.0); NEUTROPHILS % (AUTO) 77.3 % (40.0-77.0); NUCLEATED RED BLOOD CELLS 0.1 % (0.0-0.19); PLATELET COUNT (AUTO) 147 K/uL (130-400); RED BLOOD CELL COUNT(AUTO) 3.81 MIL/uL (4.00-5.50); RED CELL DISTRIBUTION WIDTH 12.9 % (11.0-15.5); WHITE BLOOD COUNT (AUTO) 7.7 K/uL (4.8-10.8)
[2018-06-17 05:26] LABS: CREATININE 0.7 mg/dL (0.5-1.5); POTASSIUM 3.9 mmol/L (3.5-5.1)
[2018-06-17] MEDS: MEROPENEM 1 GM VIAL IVP SCH ×3 (06:05→22:38)
[2018-06-17] MEDS: BUDESONIDE 0.5 MG/2 ML INH IH SCH ×2 (06:42→18:30)
[2018-06-17] MEDS: GUAIFENESIN-CODEINE 5 ML SYRUP PO PRN (07:06)
[2018-06-17 07:30] VITALS: BP 139/69
[2018-06-17] MEDS: CARVEDILOL PHOSPHATE 40 MG PO SCH (09:00)
[2018-06-17 11:00] VITALS: BP 123/55
[2018-06-17] MEDS: GABAPENTIN 300 MG CAPSULE PO SCH ×3 (11:18→20:51)
[2018-06-17] MEDS: ENOXAPARIN SODIUM 30 MG/0.3 ML SQ SCH ×2 (11:18→20:53)
[2018-06-17] MEDS: LEVETIRACETAM 500 MG TABLET PO SCH ×2 (11:19→20:52)
[2018-06-17] MEDS: DEXAMETHASONE 4 MG TAB PO SCH (11:19)
[2018-06-17] MEDS: ASPIRIN 81 MG EC TAB PO SCH (11:19)
[2018-06-17] MEDS: CLOPIDOGREL BISULFATE 75 MG TAB PO SCH (11:19)
[2018-06-17] MEDS: FAMOTIDINE/PF 20 MG/2 ML VIAL IV SCH ×2 (11:20→20:52)
[2018-06-17] MEDS: LOSARTAN 50 MG TABLET PO SCH (11:20)
--- NOTE | 2018-06-17 16:30 | NUR ---
PT DECLINED SNF AT 1620 CM WAS NOTIFIED BY THE PT/FAMILY THAT THE PATIENT DECLINED TO GO TO [facility]- STATES SHE DID NOT KNOW WHAT SHE WAS SIGNING WHEN SHE SIGNED PAT AUTH AND WOULD NEVER CONSENT TO [facility]. VINCE STATES"TEN DAYS, I NEVER KNEW THAT [facility] WAS THE PLAN CHART REIVEWED, PT NOTES, > 100 FT, ON O2, ORDER TO CHECK HOME O2 IN AM; ARACELY JOHNSON NOTIFIED. [facility] CHANGE OF PLAN.
[2018-06-17 17:00] VITALS: BP 125/62
[2018-06-17 20:11] VITALS: BP 131/56
[2018-06-17] MEDS: SERTRALINE HCL 50 MG TABLET PO SCH (20:51)
[2018-06-18] VITALS: BP 140/64
[2018-06-18] MEDS: IPRATROPIUM/ALBUTEROL SULFATE 3 ML SOLUTION IH SCH ×4 (02:22→13:42)
[2018-06-18 04:00] VITALS: BP 146/63
[2018-06-18 04:41] LABS: HEMATOCRIT 36.6 % (36-48); MEAN CORPUSCULAR HGB CONC 33.2 g/dL (32.0-36.0); MEAN CORPUSCULAR VOLUME 96.3 fL (79-99); NUCLEATED RED BLOOD CELLS 0.1 % (0.0-0.19); PLATELET COUNT (AUTO) 140 K/uL (130-400); RED BLOOD CELL COUNT(AUTO) 3.81 MIL/uL (4.00-5.50); RED CELL DISTRIBUTION WIDTH 12.8 % (11.0-15.5); WHITE BLOOD COUNT (AUTO) 7.2 K/uL (4.8-10.8)
[2018-06-18 05:02] LABS: CREATININE 0.8 mg/dL (0.5-1.5)
[2018-06-18] MEDS: BUDESONIDE 0.5 MG/2 ML INH IH SCH ×2 (06:20→18:42)
[2018-06-18] MEDS: MEROPENEM 1 GM VIAL IVP SCH ×2 (06:20→15:19)
[2018-06-18 07:30] VITALS: BP 146/62
[2018-06-18 08:14] LABS: ABG BASE EXCESS 3.3 mmol/L (-2.0-3.0); ABG HCO3 27.4 mmol/L (21.0-28.0); ABG OXYGEN SATURATION 93.1 % (95.0-99.0); ABG PCO2 40 mmHg (32-45)
[2018-06-18] MEDS: CARVEDILOL PHOSPHATE 40 MG PO SCH (09:00)
[2018-06-18] MEDS: CLOPIDOGREL BISULFATE 75 MG TAB PO SCH (09:27)
[2018-06-18] MEDS: LEVETIRACETAM 500 MG TABLET PO SCH ×2 (09:27→20:51)
[2018-06-18] MEDS: LOSARTAN 50 MG TABLET PO SCH (09:27)
[2018-06-18] MEDS: FAMOTIDINE/PF 20 MG/2 ML VIAL IV SCH (09:27)
[2018-06-18] MEDS: GABAPENTIN 300 MG CAPSULE PO SCH ×3 (09:27→20:51)
[2018-06-18] MEDS: ENOXAPARIN SODIUM 30 MG/0.3 ML SQ SCH (09:28)
[2018-06-18] MEDS: ASPIRIN 81 MG EC TAB PO SCH (09:28)
[2018-06-18] MEDS: DEXAMETHASONE 4 MG TAB PO SCH (09:28)
[2018-06-18] MEDS: BENZONATATE 100 MG CAPSULE PO PRN (09:31)
[2018-06-18 11:00] VITALS: BP 90/49
[2018-06-18] MEDS: ACETAMINOPHEN 325 MG TAB PO PRN (13:26)
[2018-06-18 16:00] VITALS: BP 116/44
[2018-06-18 20:00] VITALS: BP 117/48
[2018-06-18] MEDS: FAMOTIDINE 20MG TAB 20 MG TAB PO SCH (20:52)
[2018-06-18] MEDS: SERTRALINE HCL 50 MG TABLET PO SCH (20:52)
[2018-06-19] VITALS: BP 131/71
[2018-06-19] MEDS: MEROPENEM 1 GM VIAL IVP SCH ×4 (00:13→22:35)
[2018-06-19 03:55] VITALS: BP 153/73
[2018-06-19] MEDS: BUDESONIDE 0.5 MG/2 ML INH IH SCH ×2 (06:10→18:20)
[2018-06-19 07:30] VITALS: BP 154/83
[2018-06-19] MEDS: ASPIRIN 81 MG EC TAB PO SCH (09:46)
[2018-06-19] MEDS: FAMOTIDINE 20MG TAB 20 MG TAB PO SCH ×2 (09:46→19:50)
[2018-06-19] MEDS: GABAPENTIN 300 MG CAPSULE PO SCH ×3 (09:46→19:52)
[2018-06-19] MEDS: LOSARTAN 50 MG TABLET PO SCH (09:46)
[2018-06-19] MEDS: DEXAMETHASONE 4 MG TAB PO SCH (09:46)
[2018-06-19] MEDS: CLOPIDOGREL BISULFATE 75 MG TAB PO SCH (09:46)
[2018-06-19] MEDS: LEVETIRACETAM 500 MG TABLET PO SCH ×2 (09:47→19:49)
[2018-06-19] MEDS: ENOXAPARIN SODIUM 30 MG/0.3 ML SQ SCH (09:48)
[2018-06-19] MEDS: CARVEDILOL PHOSPHATE 40 MG PO SCH (09:50)
[2018-06-19 11:00] VITALS: BP 104/49
[2018-06-19] MEDS: BENZONATATE 100 MG CAPSULE PO SCH ×2 (12:48→19:49)
--- NOTE | 2018-06-19 12:51 | NUR ---
BRANDY NOTE brandy spoke to ALEX Hutchison. states pt needs 10 days of iv abx and will complete doses tomorrow. pt did not qualify for home o2. plan to d/c home tomorrow after iv abx given. Addendum: 06/19/18 at 1252 by JABIER PRICE CM Amended: Links added.
[2018-06-19] MEDS ORDERED: FUROSEMIDE 80 MG TABLET PO SCH (13:00)
[2018-06-19] MEDS: GUAIFENESIN-CODEINE 5 ML SYRUP PO PRN ×2 (14:59→22:35)
[2018-06-19 16:00] VITALS: BP 99/55
[2018-06-19] MEDS: IPRATROPIUM/ALBUTEROL SULFATE 3 ML SOLUTION IH SCH (18:20)
[2018-06-19] MEDS: SERTRALINE HCL 50 MG TABLET PO SCH (19:49)
[2018-06-19 20:00] VITALS: BP 105/46
[2018-06-20] VITALS: BP 125/79
[2018-06-20] MEDS: IPRATROPIUM/ALBUTEROL SULFATE 3 ML SOLUTION IH SCH ×3 (01:33→10:50)
[2018-06-20 04:00] VITALS: BP 140/51
[2018-06-20 05:15] LABS: HEMATOCRIT 35.9 % (36-48); MEAN CORPUSCULAR HEMOGLOBIN 32.2 pg (27.0-33.0); MEAN CORPUSCULAR HGB CONC 33.2 g/dL (32.0-36.0); MEAN CORPUSCULAR VOLUME 96.8 fL (79-99); NUCLEATED RED BLOOD CELLS 0.1 % (0.0-0.19); PLATELET COUNT (AUTO) 147 K/uL (130-400); RED BLOOD CELL COUNT(AUTO) 3.71 MIL/uL (4.00-5.50); RED CELL DISTRIBUTION WIDTH 13.1 % (11.0-15.5); WHITE BLOOD COUNT (AUTO) 9.4 K/uL (4.8-10.8)
[2018-06-20 05:30] LABS: CREATININE 0.8 mg/dL (0.5-1.5); POTASSIUM 4.3 mmol/L (3.5-5.1)
[2018-06-20] MEDS: BENZONATATE 100 MG CAPSULE PO SCH ×2 (05:47→11:34)
[2018-06-20] MEDS: MEROPENEM 1 GM VIAL IVP SCH ×2 (05:48→14:16)
[2018-06-20] MEDS: ACETAMINOPHEN 325 MG TAB PO PRN (05:56)
[2018-06-20] MEDS: BUDESONIDE 0.5 MG/2 ML INH IH SCH (06:30)
[2018-06-20 08:01] VITALS: BP 148/77
[2018-06-20] MEDS: CLOPIDOGREL BISULFATE 75 MG TAB PO SCH (08:09)
[2018-06-20] MEDS: GUAIFENESIN-CODEINE 5 ML SYRUP PO PRN (08:09)
[2018-06-20] MEDS: LOSARTAN 50 MG TABLET PO SCH (08:09)
[2018-06-20] MEDS: LEVETIRACETAM 500 MG TABLET PO SCH (08:09)
[2018-06-20] MEDS: GABAPENTIN 300 MG CAPSULE PO SCH ×2 (08:09→14:16)
[2018-06-20] MEDS: FAMOTIDINE 20MG TAB 20 MG TAB PO SCH (08:10)
[2018-06-20] MEDS: DEXAMETHASONE 4 MG TAB PO SCH (08:10)
[2018-06-20] MEDS: ASPIRIN 81 MG EC TAB PO SCH (08:11)
[2018-06-20] MEDS: ENOXAPARIN SODIUM 30 MG/0.3 ML SQ SCH (08:12)
[2018-06-20] MEDS: CARVEDILOL PHOSPHATE 40 MG PO SCH (08:29)
[2018-06-20] MEDS ORDERED: FUROSEMIDE 20 MG TABLET PO SCH (09:00)
[2018-06-20 11:34] VITALS: BP 114/60
[2018-06-20] MEDS ORDERED: LEVO500T2 PO (13:30)
[2018-06-20] MEDS ORDERED: BENZ-17 PO (13:30)
[2018-06-20 16:30] VITALS: BP 126/61
--- NOTE | 2018-06-20 17:24 | NUR ---
HH ON DC PER PCP ORDER RECD TO SEND INFO TO OF PTS CHOICE AND TO MAKE SURE APPT WITH DR. FORBES. PAT REC'D., APPT TOMORROW W DR. FORBES, REFERRAL SENT TO [facility], NOT TO [facility] PLANS
--- NOTE | 2018-06-20 18:26 | NUR ---
DISCHARGE PATIENT GIVEN DISCHARGE INSTRUCTIONS AND EDUCATION, INCLUDING SIDE EFFECTS ON NEW PRESCRIBED MEDICATIONS. PATIENT ALLERGIC TO [facility]. HOSPITALIST AWARE AND PER FLOR ALVAREZ NO ANTIBIOTIC TO BE DISCHARGED HOME WITH. PATIENT HAS AN APPOINTMENT WITH PCP TOMORROW. PATIENT AWARE AND VERBALIZED UNDERSTANDING OF ALL EDUCATION GIVEN VIA TEACH BACK. IV DISCONTINUED, CATHETER INTACT. NO SIGNS OF DISTRESS NOTED UPON DISCHARGE. PATIENT LEFT VIA WHEELCHAIR WITH DAUGHTER AT SIDE TO PRIVATE CAR. ALL BELONGINGS TAKEN WITH. Addendum: 06/20/18 at 1834 by ROSALVA DIAZ RN RN Amended: Links added.
== END 2018-06-20 18:30 | disposition home or self-care (01) | DRG 682 ==
LOC: EDH 21:22 → OBSVTOIN 22:25 → EDHIP 22:25 → 4CH 06-07 01:10
PROVIDERS: ADMIT Hospitalist; ATTEND Hospitalist
DX: N17.9 Acute kidney failure, unspecified (principal); J10.00 Influenza due to other identified influenza virus with unspecified type of pneumonia; N39.0 Urinary tract infection, site not specified; M62.82 Rhabdomyolysis; Z68.41 Body mass index [BMI] 40.0-44.9, adult; E66.01 Morbid (severe) obesity due to excess calories; J20.9 Acute bronchitis, unspecified; E78.5 Hyperlipidemia, unspecified; I12.9 Hypertensive chronic kidney disease with stage 1 through stage 4 chronic kidney disease, or unspecified chronic kidney disease; E87.70 Fluid overload, unspecified; N18.9 Chronic kidney disease, unspecified; D64.9 Anemia, unspecified; E11.22 Type 2 diabetes mellitus with diabetic chronic kidney disease; E78.00 Pure hypercholesterolemia, unspecified; F03.90 Unspecified dementia, unspecified severity, without behavioral disturbance, psychotic disturbance, mood disturbance, and anxiety; G40.909 Epilepsy, unspecified, not intractable, without status epilepticus; G47.30 Sleep apnea, unspecified; B96.5 Pseudomonas (aeruginosa) (mallei) (pseudomallei) as the cause of diseases classified elsewhere; R53.81 Other malaise; I25.10 Atherosclerotic heart disease of native coronary artery without angina pectoris; J45.909 Unspecified asthma, uncomplicated; K21.9 Gastro-esophageal reflux disease without esophagitis; R09.02 Hypoxemia; Z88.8 Allergy status to other drugs, medicaments and biological substances; Z95.0 Presence of cardiac pacemaker; Z99.81 Dependence on supplemental oxygen; Z82.49 Family history of ischemic heart disease and other diseases of the circulatory system
CPT/HCPCS: 36415; 36600; 70450; 71045; 71046; 80048; 80053; 81003; 82550; 82803; 83605; 83874; 84484; 85025; 85027; 85610; 85730; 87040; 87077; 87088; 87186; 87486; 87581; 87633; 87798; 87804; 92610; 93005; 94640; 94664; 94667; 94668; 94760; 97039; A4218; G0378; J0456; J1650; J1940; J2185; J2930; J3490; J7030; J8540

== ENCOUNTER 2018-07-14 19:35 | Observation (INO) | payer OTHER, MEDICARE ==
[~2018-07-14] VITALS: Ht 154.9 cm; Wt 105.4 kg
[~2018-07-14 19:35] MED LIST changes: -ADV250 IH; +BENZ-17 PO; -CARV20CR PO; +CARV40CR PO; +CLOP75TA32 PO; -DEXL60CA3 PO; +DICL25 PO; -DONE10TA8 PO; -DULO60CA44 PO; -FLUT100B IH; +GABA-531 PO; -HYDR25TA PO; -LAMO25TA3 PO; +LEVE1000 PO; -LEVE750T4 PO; +LEVO500T2 PO; +LOSA25TA41 PO; -MONT10TA21 PO; -OMEP-272 PO; +PANT40TA25 PO; -PRED10TA3 PO
[2018-07-14] MEDS ORDERED: METHYLPREDNISOLONE SOD SUCC 40MG/ML 1ML ONE (19:59)
[2018-07-14] MEDS ORDERED: IPRATROPIUM/ALBUTEROL SULFATE 3 ML SOLUTION IH ONE (20:03)
[2018-07-14 20:25] LABS: CREATININE 0.8 mg/dL (0.5-1.5); POTASSIUM 3.7 mmol/L (3.5-5.1)
[2018-07-14 20:29] LABS: ALBUMIN 3.7 g/dL (3.5-5.0); BILIRUBIN,TOTAL 0.4 mg/dL (0.2-1.0); TOTAL PROTEIN, SERUM 7.8 g/dL (6.0-8.3)
[2018-07-14 20:37] LABS: BASOPHILS % (AUTO) 0.6 % (0.0-5.0); EOSINOPHILS % (AUTO) 2.8 % (0.0-8.0); HEMATOCRIT 39.7 % (36-48); LYMPHOCYTES % (AUTO) 20.8 % (21.0-51.0); MEAN CORPUSCULAR HEMOGLOBIN 32.7 pg (27.0-33.0); MEAN CORPUSCULAR HGB CONC 34.1 g/dL (32.0-36.0); MEAN CORPUSCULAR VOLUME 95.8 fL (79-99); MONOCYTES % (AUTO) 8.1 % (3.0-13.0); NEUTROPHILS % (AUTO) 67.7 % (40.0-77.0); NUCLEATED RED BLOOD CELLS 0.2 % (0.0-0.19); PLATELET COUNT (AUTO) 193 K/uL (130-400); RED BLOOD CELL COUNT(AUTO) 4.14 MIL/uL (4.00-5.50); WHITE BLOOD COUNT (AUTO) 6.7 K/uL (4.8-10.8)
[2018-07-14 21:45] LABS: ABG BASE EXCESS -0.1 mmol/L (-2.0-3.0); ABG OXYGEN SATURATION 90.7 % (95.0-99.0); ABG PCO2 38 mmHg (32-45)
[2018-07-15] VITALS (7 sets, daily range): BP systolic 113–148; BP diastolic 52–79
[2018-07-15 00:19] LABS: APPEARANCE,URINE Clear (CLEAR); BILIRUBIN,URINE Negative (NEGATIVE); COLOR,URINE Yellow (YELLOW); GLUCOSE, URINE (UA) Negative (NEGATIVE); KETONES,URINE Negative (NEGATIVE); LEUKOCYTE ESTERASE ,URINE Negative (NEGATIVE); NITRATE,URINE Negative (NEGATIVE); OCCULT BLOOD,URINE Negative (NEGATIVE); PH,URINE 5.5 (5.0-8.0); PROTEIN,URINE Negative (NEGATIVE)
[2018-07-15] MEDS ORDERED: ONDANSETRON HCL 4 MG/2 ML VIAL IV PRN (00:30)
[2018-07-15] MEDS ORDERED: MAGNESIUM 2GM PREMIX 50ML 50 ML IV ONE ×2 (00:30→00:52)
[2018-07-15] MEDS ORDERED: NITROGLYCERIN 0.4 MG SL TAB SL PRN (00:30)
[2018-07-15] MEDS: IPRATROPIUM/ALBUTEROL SULFATE 3 ML SOLUTION IH SCH ×6 (01:26→21:06)
--- NOTE | 2018-07-15 01:45 | NUR ---
Admission note: Received report from Isabell Dee RN. Admitted pt. to floor per stretcher from ER. Pt. fully awake and responsive. AOx3. Placed in bed comfortably. Attached to O2 at 3lpm via NC with O2Sat at 92-94%. Oriented to room and used of call lights. Policies and procedures explained. Pt. verbalized understanding. VS taken and recorded. Assessment done. Has an IV site to RAC gauge #18 and RH gauge #20 - intact and patency checked. Seen and visited by hospitalist, Minaya NP with orders carried out. Hooked to telemetry with SR result. Watched out for any unusual changes in condition. Cared for and needs attended.
[2018-07-15] MEDS ORDERED: GABA-531 PO (02:42)
[2018-07-15] MEDS ORDERED: DONE10TA43 PO (02:42)
[2018-07-15] MEDS ORDERED: PRAV20TA4 PO (02:42)
[2018-07-15] MEDS ORDERED: FLUT16H NASAL (02:42)
[2018-07-15] MEDS ORDERED: DICL50TA9 PO (02:42)
[2018-07-15] MEDS: METHYLPREDNISOLONE SOD SUCC 40MG/ML 1ML IVP SCH ×3 (03:40→22:07)
[2018-07-15 04:55] LABS: BASOPHILS % (AUTO) 0.2 % (0.0-5.0); EOSINOPHILS % (AUTO) 0.1 % (0.0-8.0); HEMATOCRIT 39.4 % (36-48); LYMPHOCYTES % (AUTO) 11.1 % (21.0-51.0); MEAN CORPUSCULAR HEMOGLOBIN 32.4 pg (27.0-33.0); MEAN CORPUSCULAR HGB CONC 33.5 g/dL (32.0-36.0); MEAN CORPUSCULAR VOLUME 96.7 fL (79-99); MONOCYTES % (AUTO) 1.3 % (3.0-13.0); NEUTROPHILS % (AUTO) 87.3 % (40.0-77.0); PLATELET COUNT (AUTO) 192 K/uL (130-400); RED BLOOD CELL COUNT(AUTO) 4.08 MIL/uL (4.00-5.50); RED CELL DISTRIBUTION WIDTH 13.5 % (11.0-15.5)
[2018-07-15 05:20] LABS: ALBUMIN 3.7 g/dL (3.5-5.0); BILIRUBIN,TOTAL 0.3 mg/dL (0.2-1.0); CREATININE 0.9 mg/dL (0.5-1.5); MAGNESIUM 2.2 mg/dL (1.80-2.40); POTASSIUM 3.9 mmol/L (3.5-5.1); TOTAL PROTEIN, SERUM 7.8 g/dL (6.0-8.3)
[2018-07-15] MEDS ORDERED: SUB TO ALBUTEROL 2.5MG/3ML NEBULES PER P&T IH PRN (07:00)
[2018-07-15] MEDS ORDERED: CARVEDILOL PHOSPHATE 40 MG PO SCH (09:00)
[2018-07-15] MEDS: DICLOFENAC SODIUM 50 MG PO SCH ×2 (09:00→21:00)
[2018-07-15] MEDS: LEVETIRACETAM 500 MG TABLET PO SCH ×2 (09:57→21:50)
[2018-07-15] MEDS: ASPIRIN 81 MG EC TAB PO SCH (09:57)
[2018-07-15] MEDS: CLOPIDOGREL BISULFATE 75 MG TAB PO SCH (09:58)
[2018-07-15] MEDS: FAMOTIDINE 20MG TAB 20 MG TAB PO SCH ×2 (09:58→21:49)
[2018-07-15] MEDS: LOSARTAN 50 MG TABLET PO SCH (09:58)
[2018-07-15] MEDS: ENOXAPARIN SODIUM 40 MG/0.4 ML SYRINGE SQ SCH (09:59)
[2018-07-15] MEDS: FLUTICASONE PROPIONATE 50MCG/SPRAY 16 GM BOTTLE NS SCH ×2 (09:59→21:49)
[2018-07-15] MEDS: GABAPENTIN 300 MG CAPSULE PO SCH ×3 (10:01→21:58)
[2018-07-15] MEDS: PANTOPRAZOLE SODIUM 40 MG TABLET.DR PO SCH (10:02)
[2018-07-15] MEDS: ACETAMINOPHEN 325 MG TAB PO PRN ×2 (10:09→19:26)
[2018-07-15] MEDS: FUROSEMIDE 20 MG TABLET PO SCH ×2 (13:05→21:58)
[2018-07-15] MEDS ORDERED: GUAIFENESIN SUGAR-FREE 100 MG/5 ML UDCUP PO PRN (17:15)
[2018-07-15] MEDS ORDERED: SIMVASTATIN 20 MG TABLET PO SCH (21:00)
[2018-07-15] MEDS ORDERED: SERTRALINE HCL 50 MG TABLET PO SCH (21:00)
[2018-07-15] MEDS ORDERED: DONEPEZIL HCL 5 MG TAB PO SCH (21:00)
[2018-07-16 00:57] VITALS: BP 111/76
[2018-07-16] MEDS: IPRATROPIUM/ALBUTEROL SULFATE 3 ML SOLUTION IH SCH ×3 (01:11→09:27)
[2018-07-16 04:30] VITALS: BP 117/61
[2018-07-16 07:00] VITALS: BP 133/67
[2018-07-16] MEDS: FLUTICASONE PROPIONATE 50MCG/SPRAY 16 GM BOTTLE NS SCH (09:00)
[2018-07-16] MEDS: ENOXAPARIN SODIUM 40 MG/0.4 ML SYRINGE SQ SCH (09:00)
[2018-07-16] MEDS: CLOPIDOGREL BISULFATE 75 MG TAB PO SCH (09:10)
[2018-07-16] MEDS: FAMOTIDINE 20MG TAB 20 MG TAB PO SCH (09:10)
[2018-07-16] MEDS: LEVETIRACETAM 500 MG TABLET PO SCH (09:10)
[2018-07-16] MEDS: ASPIRIN 81 MG EC TAB PO SCH (09:11)
[2018-07-16] MEDS: LOSARTAN 50 MG TABLET PO SCH (09:11)
[2018-07-16] MEDS: GABAPENTIN 300 MG CAPSULE PO SCH (09:24)
[2018-07-16] MEDS: PANTOPRAZOLE SODIUM 40 MG TABLET.DR PO SCH (09:24)
--- NOTE | 2018-07-16 10:00 | NUR ---
cm note discussed pt status with TOWER ERECTOR HELPER AJ states keep observation. dc plan home today
[2018-07-16] MEDS ORDERED: ALBU8.5H8 IH (10:07)
[2018-07-16] MEDS ORDERED: FURO20TA6 PO (10:07)
[2018-07-16 10:50] LABS: CREATININE 0.9 mg/dL (0.5-1.5); POTASSIUM 3.6 mmol/L (3.5-5.1)
== END 2018-07-16 11:25 | disposition home or self-care (01) ==
LOC: EDH 19:35 → INTOOBSV 07-15 00:08 → EDHIP 07-15 00:08 → 3CH 07-15 01:29
PROVIDERS: ADMIT Internal Medicine; ATTEND Internal Medicine
DX: J45.901 Unspecified asthma with (acute) exacerbation (principal); R09.02 Hypoxemia; E78.5 Hyperlipidemia, unspecified; N17.9 Acute kidney failure, unspecified; I10 Essential (primary) hypertension; K21.9 Gastro-esophageal reflux disease without esophagitis; K76.0 Fatty (change of) liver, not elsewhere classified; E66.2 Morbid (severe) obesity with alveolar hypoventilation; F03.90 Unspecified dementia, unspecified severity, without behavioral disturbance, psychotic disturbance, mood disturbance, and anxiety; G40.909 Epilepsy, unspecified, not intractable, without status epilepticus; M62.82 Rhabdomyolysis; Z95.0 Presence of cardiac pacemaker; Z68.41 Body mass index [BMI] 40.0-44.9, adult
CPT/HCPCS: 36415 ×3; 36600; 71045; 71275; 80048; 80053 ×2; 81003; 82803; 83735 ×2; 83880; 84484; 85025 ×2; 87040 ×2; 87486; 87581; 87633; 87798; 87804 ×2; 93005; 94640 ×10; 94664; 94760 ×2; 96372; 96374; 96376; 97039; 97161; 99284; A4218; G0378 ×35; G8978; G8979; G8980; G8981; G8982; G8983; J1650; J2920 ×4; J3475

== ENCOUNTER 2018-07-24 11:16 | Emergency (ER) | payer OTHER, MEDICARE ==
[~2018-07-24 11:16] MED LIST changes: -BENZ-17 PO; -DICL25 PO; +DICL50TA9 PO; +DONE10TA43 PO; +FLUT16H NASAL; +FURO20TA6 PO; -HYDR-4068 PO; -LEVO500T2 PO; +PRAV20TA4 PO
[2018-07-24] MEDS ORDERED: HYDROCODONE/ACETAMINOPHEN 10/325 MG TAB ONE (12:09)
[2018-07-24] MEDS ORDERED: CYCLOBENZAPRINE HCL 10 MG TABLET ONE (12:09)
[2018-07-24] MEDS ORDERED: KETOROLAC TROMETHAMINE 30MG/ML ONE (14:16)
== END 2018-07-24 14:23 | disposition home or self-care (01) ==
LOC: EDH 11:16
DX: M54.2 Cervicalgia (principal); I10 Essential (primary) hypertension; E78.5 Hyperlipidemia, unspecified; J45.909 Unspecified asthma, uncomplicated; K21.9 Gastro-esophageal reflux disease without esophagitis; Z90.49 Acquired absence of other specified parts of digestive tract; Z91.048 Other nonmedicinal substance allergy status; Z88.1 Allergy status to other antibiotic agents
CPT/HCPCS: 72040; 96372; 99283; J1885

== ENCOUNTER 2018-11-03 19:42 | Emergency (ER) | payer OTHER, MEDICARE ==
[2018-11-03] MEDS ORDERED: IOHEXOL-350 75 ML VIAL IV ONE (20:09)
[2018-11-03] MEDS ORDERED: ONDANSETRON HCL 4 MG/2 ML VIAL ONE (20:11)
[2018-11-03] MEDS ORDERED: MORPHINE SULFATE 4 MG/1ML SYG ONE (20:12)
[2018-11-03 20:24] LABS: APPEARANCE,URINE Clear (CLEAR); BILIRUBIN,URINE Negative (NEGATIVE); COLOR,URINE Yellow (YELLOW); GLUCOSE, URINE (UA) Negative (NEGATIVE); KETONES,URINE 15 mg/dL (NEGATIVE); LEUKOCYTE ESTERASE ,URINE Small (NEGATIVE); NITRATE,URINE Negative (NEGATIVE); OCCULT BLOOD,URINE Negative (NEGATIVE); PH,URINE 6.5 (5.0-8.0); PROTEIN,URINE POS 1+ mg/dL (NEGATIVE)
[2018-11-03 20:25] LABS: EOSINOPHILS % (AUTO) 2.8 % (0.0-8.0); HEMATOCRIT 40.3 % (36-48); LYMPHOCYTES % (AUTO) 19.9 % (21.0-51.0); MEAN CORPUSCULAR HEMOGLOBIN 31.6 pg (27.0-33.0); MEAN CORPUSCULAR HGB CONC 33.7 g/dL (32.0-36.0); MEAN CORPUSCULAR VOLUME 93.8 fL (79-99); MONOCYTES % (AUTO) 8.6 % (3.0-13.0); NEUTROPHILS % (AUTO) 67.7 % (40.0-77.0); PLATELET COUNT (AUTO) 180 K/uL (130-400); RED BLOOD CELL COUNT(AUTO) 4.29 MIL/uL (4.00-5.50); RED CELL DISTRIBUTION WIDTH 12.4 % (11.0-15.5); WHITE BLOOD COUNT (AUTO) 6.6 K/uL (4.8-10.8)
[2018-11-03 20:32] LABS: BACTERIA,URINE Rare /HPF (None Seen); RBC,URINE 0-1 /HPF (0-1)
[2018-11-03 20:33] LABS: CREATININE 0.7 mg/dL (0.5-1.5); MUCUS,URINE Rare LPF (None Seen); POTASSIUM 3.5 mmol/L (3.5-5.1); SQUAMOUS EPITHELIAL CELL,UR Few /HPF (0-2)
[2018-11-03 20:40] LABS: BILIRUBIN,TOTAL 0.9 mg/dL (0.2-1.0); TOTAL PROTEIN, SERUM 8.4 g/dL (6.0-8.3)
== END 2018-11-03 23:25 | disposition home or self-care (01) ==
LOC: EDH 19:42
DX: K52.9 Noninfective gastroenteritis and colitis, unspecified (principal); J45.909 Unspecified asthma, uncomplicated; K21.9 Gastro-esophageal reflux disease without esophagitis; E78.5 Hyperlipidemia, unspecified; I10 Essential (primary) hypertension; Z88.1 Allergy status to other antibiotic agents; Z90.49 Acquired absence of other specified parts of digestive tract
CPT/HCPCS: 36415; 74177; 76705; 80053; 81001; 83690; 84484; 85025; 93005; 96374; 96375; J2270; J2405; Q9967

== ENCOUNTER → 2022-03-16 | Outpatient (CLI) | payer OTHER, MEDICARE ==
[~2022-03-16] MED LIST changes: -PANT40TA25 PO; +PANT40TA54 PO
== END | disposition home or self-care (01) ==
LOC: RAH 13:12
PROVIDERS: ATTEND Internal Medicine
DX: N83.9 Noninflammatory disorder of ovary, fallopian tube and broad ligament, unspecified (principal); R19.04 Left lower quadrant abdominal swelling, mass and lump; R10.9 Unspecified abdominal pain; R93.5 Abnormal findings on diagnostic imaging of other abdominal regions, including retroperitoneum; Z90.710 Acquired absence of both cervix and uterus
CPT/HCPCS: 76856

== ENCOUNTER 2023-01-06 06:04 | Day surgery (SDC) | payer OTHER, MEDICARE ==
[2023-01-04 11:40] LABS: BASOPHILS % (AUTO) 0.4 % (0.0-5.0); EOSINOPHILS % (AUTO) 3.2 % (0.0-8.0); HEMATOCRIT 39.3 % (36-48); LYMPHOCYTES % (AUTO) 21.8 % (21.0-51.0); MEAN CORPUSCULAR HEMOGLOBIN 31.4 pg (27.0-33.0); MEAN CORPUSCULAR HGB CONC 31.8 g/dL (32.0-36.0); MEAN CORPUSCULAR VOLUME 98.7 fL (79-99); MONOCYTES % (AUTO) 9.1 % (3.0-13.0); NEUTROPHILS % (AUTO) 65.1 % (40.0-77.0); PLATELET COUNT (AUTO) 131 K/uL (130-400); RED BLOOD CELL COUNT(AUTO) 3.98 MIL/uL (4.00-5.50); RED CELL DISTRIBUTION WIDTH 12.5 % (11.0-15.5); WHITE BLOOD COUNT (AUTO) 5.3 K/uL (4.8-10.8)
[2023-01-04 11:45] VITALS: BP 151/66; PULSE 61; RESP 20
[2023-01-04 11:55] LABS: INR 0.94 (0.85-1.15); PROTHROMBIN TIME 10.9 SEC (9.6-11.6)
[2023-01-04 11:57] LABS: PARTIAL THROMBOPLASTIN TIME 28.2 SEC (26.3-35.5)
[2023-01-04 12:01] LABS: CREATININE 0.8 mg/dL (0.5-1.5); POTASSIUM 4.3 mmol/L (3.5-5.1)
[~2023-01-06] VITALS: Ht 154.9 cm; Wt 105.6 kg
[2023-01-06] VITALS (10 sets, daily range): BP systolic 120–157; BP diastolic 47–82; PULSE 60–64; RESP 12–17; TEMP 97.6
[~2023-01-06 06:04] MED LIST changes: -AEC81 PO; -ALBU8.5H8 IH; +AMLO-257 PO; +CARV3.12 PO; -CARV40CR PO; +CHOL100046 PO; -DICL50TA9 PO; +FLUT15.845 NS; -FLUT16H NASAL; +FURO20TA4 PO; -FURO20TA6 PO; -GABA-531 PO; +GABA300C PO; -LEVE1000 PO; +LEVE750T10 PO; +LEVO50CA4 PO; +LORA10TA7 PO; +NITR0.3T11 SL; +SERT-440 PO; -SERT100T PO
[2023-01-06] MEDS ORDERED: 0.9%NACL 1000ML 1,000 ML IV ONE (06:37)
[2023-01-06] MEDS ORDERED: CEFAZOLIN SODIUM 1 GM VIAL ONE (07:12)
[2023-01-06] MEDS ORDERED: MIDAZOLAM HCL 1 MG/ML 2ML VIAL ONE ×2 (07:12→08:04)
[2023-01-06] MEDS ORDERED: LIDOCAINE HCL 1% MDV 50ML VIAL ONE (07:12)
[2023-01-06] MEDS ORDERED: BUPIVACAINE/PF 0.25% 10ML VIAL IJ ONE (07:12)
[2023-01-06] MEDS ORDERED: MEPERIDINE-PF 25 MG/ML SYG ONE ×2 (07:13→08:05)
[2023-01-06] MEDS ORDERED: BACITRACIN 1 EACH PACKET TP ONE (08:15)
[2023-01-06] MEDS ORDERED: ACETAMINOPHEN WITH CODEINE 1 TAB TAB PO PRN (08:30)
[2023-01-06] MEDS ORDERED: ACETAMINOPHEN 500 MG TABLET PO PRN (08:30)
[2023-01-06] MEDS ORDERED: TRAM50TA4 PO (08:32)
== END 2023-01-06 11:50 | disposition home or self-care (01) ==
LOC: DAH 06:04
PROVIDERS: ATTEND Internal Medicine Cardiovascular Disease
DX: Z45.010 Encounter for checking and testing of cardiac pacemaker pulse generator [battery] (principal); I49.5 Sick sinus syndrome; I48.0 Paroxysmal atrial fibrillation; I10 Essential (primary) hypertension; E03.9 Hypothyroidism, unspecified; M19.90 Unspecified osteoarthritis, unspecified site; E78.5 Hyperlipidemia, unspecified; Z79.01 Long term (current) use of anticoagulants; Z79.899 Other long term (current) drug therapy
CPT/HCPCS: 80048; 85025; 85610; 85730; 36415; 93005; 33228; C1785; J0690; J7030; J2250 ×2; J3490 ×2; J2175 ×2; A4215; A4335; A4222; A4221; A4663; A4216; A4606; A4223 ×3; A4554; 99156; 99157

== ENCOUNTER → 2023-04-01 | Outpatient (CLI) | payer OTHER, MEDICARE ==
[~2023-04-01] MED LIST changes: +TRAM50TA4 PO
== END | disposition home or self-care (01) ==
LOC: RAH 12:25
PROVIDERS: ATTEND Internal Medicine
DX: Z13.820 Encounter for screening for osteoporosis (principal); Z78.0 Asymptomatic menopausal state
CPT/HCPCS: 77080

== ENCOUNTER → 2024-09-27 | Outpatient (CLI) | payer OTHER, MEDICARE ==
[~2024-09-27] MED LIST changes: +ALBU2.5V2 NEB; -AMLO-257 PO; -CHOL100046 PO; -FLUT15.845 NS; +FLUT1BLS3 PO; -LEVO50CA4 PO; +LEVO50CA5 PO; -LORA10TA7 PO; -NITR0.3T11 SL; -PANT40TA54 PO; -TRAM50TA4 PO
[2024-09-27 12:24] LABS: BASOPHILS # (AUTO) 0.02 K/uL (0.00-0.20); BASOPHILS % (AUTO) 0.5 % (0.0-5.0); EOSINOPHILS # (AUTO) 0.16 K/uL (0.00-0.70); EOSINOPHILS % (AUTO) 3.7 % (0.0-8.0); HEMATOCRIT 40.9 % (36-48); IMMATURE GRANULOCYTE ABSOLUTE 0.01 K/uL (0-1); LYMPHOCYTES # (AUTO) 0.9 K/uL (1.0-4.8); LYMPHOCYTES % (AUTO) 20.6 % (21.0-51.0); MEAN CORPUSCULAR HEMOGLOBIN 33.2 pg (27.0-33.0); MEAN CORPUSCULAR VOLUME 103.5 fL (79-99); MONOCYTES # (AUTO) 0.4 K/uL (0.1-1.0); MONOCYTES % (AUTO) 8.2 % (3.0-13.0); NEUTROPHILS # (AUTO) 2.9 K/uL (1.8-7.7); NEUTROPHILS % (AUTO) 66.8 % (40.0-77.0); PLATELET COUNT (AUTO) 119 K/uL (130-400); RED BLOOD CELL COUNT(AUTO) 3.95 MIL/uL (4.00-5.50); WHITE BLOOD COUNT (AUTO) 4.3 K/uL (4.8-10.8)
[2024-09-27 12:46] LABS: ALBUMIN 3.5 g/dL (3.5-5.0); BILIRUBIN,TOTAL 0.5 mg/dL (0.2-1.0); CREATININE 0.9 mg/dL (0.5-1.0); POTASSIUM 3.7 mmol/L (3.5-5.1); T4 (THYROXINE) 6.4 ug/dL (4.7-13.3); TOTAL PROTEIN, SERUM 6.9 g/dL (6.0-8.3)
== END | disposition home or self-care (01) ==
LOC: LAB 09:59
PROVIDERS: ATTEND Physician Assistant
DX: I48.0 Paroxysmal atrial fibrillation (principal); I49.5 Sick sinus syndrome; Z95.0 Presence of cardiac pacemaker
CPT/HCPCS: 36415; 80053; 84436; 84443; 85025